=== PATIENT | female | born 1940 | race Caucasian/White ===

== ENCOUNTER → 2016-11-19 | Outpatient (CLI) | payer MEDICARE, OTHER ==
[~2016-11-19] MED LIST: ALDACTONE25 MG PO; CATHETER FLUSH 10 ML SYR IV PRN; IBP800T PO; IOHEXOL 350 MG/ML 100 ML (OMNIPAQUE 350) VIAL IV ONE; KCL20TCR PO; LOSA1TAB3 PO; LOSA50TA6 PO; LVT.05T PO; NS 100 ML (IVPB) BAG IV ONE
--- OUTSIDE RECORDS SUMMARY | 2016-11-19 08:16 | XMS REPORT | Referral Summary ---
Author Author [facility] Organization [facility] Address Unknown Phone Unavailable Encounter Hospital [facility] [id number] Date(s): 10/21/16 - 10/21/16 [facility] [address] [place] [id number] Discharge Disposition: 01 O/P Home Vital Signs No data available for this section Problem List No data available for this section Allergies, Adverse Reactions, Alerts No data available for this section Medications No data available for this section Results No data available for this section Immunizations No data available for this section Procedures No data available for this section Social History No data available for this section Functional Status No data available for this section Assessment and Plan No data available for this section Hospital Discharge Instructions No data available for this section
[2016-11-19 08:40] LABS: CREATININE SERUM 0.97 MG/DL (0.60-1.30)
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
== END ==
LOC: RAD 08:12
PROVIDERS: ATTEND Surgery Pediatric Surgery
DX: R10.11 Right upper quadrant pain (principal)
CPT/HCPCS: 36415; 74177; 82565; 84520

== ENCOUNTER → 2017-10-29 | Outpatient (CLI) | payer MEDICARE, OTHER ==
[~2017-10-29] MED LIST changes: -CATHETER FLUSH 10 ML SYR IV PRN; -IOHEXOL 350 MG/ML 100 ML (OMNIPAQUE 350) VIAL IV ONE; -NS 100 ML (IVPB) BAG IV ONE
[2017-10-29 16:03] LABS: BASOPHILS % (AUTO) 0 % (0-10); EOSINOPHILS # (AUTO) 0.1 10^3/uL (0.0-0.3); EOSINOPHILS % (AUTO) 1 % (0-10); HEMATOCRIT 37 % (35-52); HEMOGLOBIN 14.3 G/DL (11.5-16.0); LYMPHOCYTES # (AUTO) 1.8 X 10^3 (1.0-4.0); LYMPHOCYTES % (AUTO) 20 % (12-44); MEAN CORPUSCULAR HEMOGLOBIN 27 PG (25-34); MEAN CORPUSCULAR HGB CONC 39 G/DL (32-36); MEAN CORPUSCULAR VOLUME 71 FL (80-99); MEAN PLATELET VOLUME 9.6 FL (7.4-10.4); MONOCYTES # (AUTO) 0.8 X 10^3 (0.0-1.0); MONOCYTES % (AUTO) 9 % (0-12); NEUTROPHILS # (AUTO) 6.6 X 10^3 (1.8-7.8); NEUTROPHILS % (AUTO) 71 % (42-75); PLATELET COUNT 195 10^3/uL (130-400); RED BLOOD COUNT 5.22 10^6/uL (4.35-5.85); WHITE BLOOD COUNT 9.3 10^3/uL (4.3-11.0)
--- NOTE | 2017-10-29 16:14 | Diagnostic Imaging Report ---
INDICATION: R07.9, FEVER COMPARISON: 08/08/2011 FINDINGS: Frontal and lateral views of the chest demonstrate normal heart size and pulmonary vascularity. The lungs are clear. There are no signs of infiltrate, pleural effusions or pneumothoraces. The visualized osseous structures show no acute abnormalities. IMPRESSION: 1. No acute process. No signs of infiltrates, effusions or pneumothoraces. Dictated by: Dictated on workstation # [id number]
[2017-10-29 16:20] LABS: ERYTHROCYTE SEDIMENTATION RATE 9 MM/HR (0-30)
[2017-10-29 16:21] LABS: ALBUMIN 4.1 GM/DL (3.2-4.5); BILIRUBIN,TOTAL 0.6 MG/DL (0.1-1.0); CALCIUM 9.4 MG/DL (8.5-10.1); CREATININE SERUM 0.93 MG/DL (0.60-1.30); MAGNESIUM 1.8 MG/DL (1.8-2.4); POTASSIUM 3.8 MMOL/L (3.6-5.0); TOTAL PROTEIN 7.1 GM/DL (6.4-8.2)
[2017-10-29 16:41] LABS: FREE T4 (FREE THYROXINE) 1.45 NG/DL (0.70-1.48)
== END ==
LOC: RAD 15:47
PROVIDERS: ATTEND Internal Medicine
DX: R07.9 Chest pain, unspecified (principal); E03.9 Hypothyroidism, unspecified; R50.9 Fever, unspecified
CPT/HCPCS: 36415; 71046; 80053; 83735; 84439; 84443; 84484; 85025; 85379; 85652